=== PATIENT | female | born 1960 | race Two or more races ===

== ENCOUNTER → 2023-04-10 | Day surgery (SDC) | payer OTHER ==
[2023-04-04 11:28] VITALS: BMI 35.2
[2023-04-10 11:31] VITALS: TEMP 98
[2023-04-10 11:33] VITALS: RESP 14
[2023-04-10 13:45] VITALS: BP 119/46; PULSE 71
== END | disposition home or self-care (01) ==
LOC: JASU-ENDO 04:34
PROVIDERS: ATTEND Internal Medicine Gastroenterology
PROC: 0DBH8ZX Excision of Cecum, Via Natural or Artificial Opening Endoscopic, Diagnostic (ICD-10-PCS; principal; 2023-04-10 10:30)
DX: Z12.11 Encounter for screening for malignant neoplasm of colon (principal); D12.0 Benign neoplasm of cecum; K64.8 Other hemorrhoids; K57.30 Diverticulosis of large intestine without perforation or abscess without bleeding; Z86.010 Personal history of colon polyps
CPT/HCPCS: 82962; 88305-TC